=== PATIENT | male | born 1980 | race Caucasian/White ===

== ENCOUNTER → 2021-04-07 12:37 | Outpatient (CLI) | payer BC, SELFPAY ==
--- NOTE | 2021-04-07 12:37 | MR_ITS ---
PROCEDURE: MR HEAD/BRAIN WO/W CON CLINICAL INDICATION: seizures COMPARISON: No exams were available for comparison TECHNIQUE: Routine multiplanar multi echo sequences are performed without gadolinium enhancement. FINDINGS: No midline shift, mass effect, intracranial hemorrhage, hydrocephalus. The cerebellopontine angles, cerebellum, brainstem, and mid brain have an unremarkable appearance. No abnormal white matter signal intensity. The hippocampal gyri are unremarkable no enhancing lesions apparent. The pituitary, optic chiasm, and corpus callosum have an unremarkable appearance. No cerebellar ectopia. No mastoid effusion or sinus air-fluid level. There is mild mucosal thickening of the frontal sinus on the right. IMPRESSION: Negative MRI of the brain without and with contrast Dictated by: Nikita Tate MD 04/07/2021 17:02 Nikita Tate MD in [place] 04/07/2021 17:02
== END ==
PROVIDERS: PCP Family Medicine; Visit Provider Specialist
DX: R56.9 Unspecified convulsions (principal)
CPT/HCPCS: 70553; A9576

== ENCOUNTER → 2022-05-25 14:57 | Outpatient (CLI) | payer BC, SELFPAY ==
[2022-05-31 19:52] LABS: Testosterone, Total, LC/MS 464.8 ng/dL (264.0-916.0); Testosterone,Free 4.6 pg/mL (6.8-21.5)
== END ==
PROVIDERS: PCP Family Medicine; Visit Provider Family Medicine
DX: E34.9 Endocrine disorder, unspecified (principal)
CPT/HCPCS: 84402; 84403

== ENCOUNTER → 2023-01-03 09:30 | Outpatient (CLI) | payer BC, SELFPAY | PROVIDERS: PCP Family Medicine; Visit Provider Family Medicine | DX: R05.9 Cough, unspecified (principal); R06.2 Wheezing | CPT/HCPCS: 94060 ==

== ENCOUNTER 2023-11-07 21:43 | Outpatient (CLI) | payer BC, SELFPAY ==
[2023-11-07 18:27] LABS: Adenovirus,PCR Not Detected (NotDetected); Coronavirus 19, PCR Not Detected (NotDetected); Coronavirus 229E Not Detected (NotDetected); Coronavirus NL63 Not Detected (NotDetected); Coronavirus OC43 Not Detected (NotDetected); Coronovirus HKU1,PCR Not Detected (NotDetected); Human Metapneumovirus Not Detected (NotDetected); Influenza A, PCR Not Detected (NotDetected); Influenza AH1, 2009 Not Detected (NotDetected); Influenza AH1, PCR Not Detected (NotDetected); Influenza AH3,PCR Not Detected (NotDetected); Influenza B, PCR Not Detected (NotDetected); Parainfluenza 1, PCR Not Detected (NotDetected); Parainfluenza 2, PCR Not Detected (NotDetected); Parainfluenza 3, PCR Not Detected (NotDetected); Parainfluenza 4, PCR Not Detected (NotDetected); Respiratory Syncytial Virus Not Detected (NotDetected); Rhinovirus/Enterovirus Not Detected (NotDetected)
== END 2023-11-07 23:59 ==
LOC: LAB.DROPOF 21:43
PROVIDERS: PCP Nurse Practitioner; Visit Provider Nurse Practitioner
DX: J06.9 Acute upper respiratory infection, unspecified (principal); R09.89 Other specified symptoms and signs involving the circulatory and respiratory systems; R05.9 Cough, unspecified; R06.2 Wheezing
CPT/HCPCS: 87581; 87632; 87635; 87798

== ENCOUNTER 2025-04-17 11:32 | Outpatient (CLI) | payer BC, SELFPAY ==
--- OUTSIDE RECORDS SUMMARY | 2016-10-04 11:09 | XMS_ITS | Encounter Summary ---
Author Organization [place] [address] Care Team Providers Care Welder/Fitter Name Role Phone Manuel Garland Primary Care Provider Encounter Details Date Type Department Care Team (Latest Contact Info) Description 10/04/2016 10:09 AM [facility] Hospital Encounter [facility] Referral Lab [address] [place] [address] Raad Lockhart MD Pain of right lower leg Social History Tobacco Use Types Packs/Day Years Used Date Smoking Tobacco: Every Day Cigarettes 0.5 17 Alcohol Use Standard Drinks/Week Comments No 0 (1 standard drink = 0.6 oz pur e alcohol) Sex and Gender Information Value Date Recorded Sex Assigned at Not on file Legal Sex Male 9:05 PM EDT Gender Identity Not on file Sexual Orientation Not on file COVID-19 Exposure Response Date Recorded In the last month, have you been in contact with someone who was confirmed or suspected to have Coronavirus / COVID-19? No / Unsure 01/05/2021 12:49 AM EDT documented as of this encounter Functional Status * Is the person deaf or does he/she have serious difficulty hearing? Answer Date of Assessment Author No 05/25/2015 3:49 PM EDT Luh Lindquist RN * Is the person blind or does he/she have serious difficulty seeing even when wearing glasses? Answer Date of Assessment Author No 05/25/2015 3:49 PM EDT Luh Lindquist RN * Does this person have serious difficulty walking or climbing stairs? Answer Date of Assessment Author No 05/25/2015 3:49 PM Luh Gifford RN * Does this person have difficulty dressing or bathing? Answer Date of Assessment Author No 05/25/2015 3:49 PM Luh Gifford RN * Because of a physical, mental or emotional condition, does this person have difficulty doing errands alone such as visiting a doctor's office or shopping? Answer Date of Assessment Author No 05/25/2015 3:49 PM Luh Gifford RN documented as of this encounter Mental Status * Because of a physical, mental or emotional condition, does this person have serious difficulty concentrating, remembering or making decisions? Answer Entry Date Author No 05/25/2015 3:49 PM Luh Gifford RN documented in this encounter Plan of Treatment Scheduled Orders Name Type Priority Associated Diagnoses Orde r Schedule C-REACTIVE PROTEIN HIGH SENSITIVITY Lab Routine Pain of right lower leg ONCE for 1 Occurrences starting 10/04/2016 until 11/08/2016 CBC WITH AUTO DIFF Lab Routine Pain of right lower leg ONCE for 1 Occurrences starting 10/04/2016 until 11/08/2016 SEDIMENTATION RATE AUTOMATED Lab Routine Pain of right lower leg ONCE for 1 Occurrences starting 10/04/2016 until 11/08/2016 documented as of this encounter Visit Diagnoses Diagnosis Pain of right lower leg Pain in limb documented in this encounter Care Teams Welder/Fitter Relationship Specialty Start Date End Date Manuel Garland PCP - General Family Medicine 08/06/15 documented as of this encounter
[2025-04-17 19:27] LABS: Coronavirus 19, PCR Not Detected (NotDetected); Influenza A, PCR Not Detected (NotDetected); Influenza B, PCR Not Detected (NotDetected)
--- OUTSIDE RECORDS SUMMARY | 2025-04-22 11:38 | XMS_ITS | Clinical Summary ---
Author Organization [facility] Address [address] [place] [phone] Phone Care Team Providers Care Area Loss Prevention Manager Name Role Phone Dima Washington MD Primary Care Provider [phone] Medications venlafaxine ER (EFFEXOR XR) 150 MG CP24 Take 150 mg by mouth daily. Active propranolol (INDERAL) 40 MG TABS Take 40 mg by mouth. 09/05/2020 Active diazePAM (VALIUM) 10 MG TABS Take 1/2 pill 3 times a day as needed for anxiety x14 days thenTake a half a pill 2 times a day as needed for anxiety x14 days then 04/01/2020 Active LINZESS 290 MCG CAPS Take 290 mcg by mouth daily. 05/07/2020 Active predniSONE (DELTASONE) 20 MG TABS Take 40 mg by mouth daily. 10/21/2020 Active LYRICA 200 MG CAPS SMARTSI Milligram(s) By Mouth Twice Daily 09/05/2020 Active promethazine (PHENERGAN) 25 MG TABS Take 25 mg by mouth every 6 (six) hours as needed. 09/05/2020 Active QUEtiapine (SEROQUEL) 50 mg tablet 10/10/2020 Active VENTOLIN HFA 108 (90 Base) mcg/puff AERS Use 2 puffs 4 (four) times daily. 1 inhaler 6 11/03/2020 Active Active Problems Problem Noted Date Diagnosed Date VALERO (dyspnea on exertion) 10/23/2020 Lung nodule 10/23/2020 Cough 10/23/2020 Tobacco abuse 10/23/2020 Social History Tobacco Use Types Packs/Day Years Used Date Smoking Tobacco: Every Day Food Insecurities Answer Date Recorded Worried about running out of food Not on file 10/17/2023 Food Bought Not on file 10/17/2023 Housing/Utilities Answer Date Recorded Worried about losing home Not on file 2023 Stayed outside house Not on file 10/17/2023 Unable to get utilities Not on file 10/17/19 Interpersonal Safety Answer Date Record ed Feel physically or emotionally unsafe where curr ently live Not on file 10/17/2023 Harm by anyone Not on file 10/17/2023 Emotionally Harmed Not on file 10/17/2023 Transportation Answer Date Recorded Worried about transportation Not on file Sex and Gender Information Value Date Recorded Sex Assigned at Not on file Legal Sex Male 10:02 PM EDT Gender Identity Not on file Sexual Orientation Not on file Last Filed Vital Signs Vital Sign Reading Time Taken Comments Blood Pressure 124/75 11/03/2020 11:23 AM EST Pulse 87 11/03/2020 11:23 AM EST Temperature 36 C (96.8 F) 11/03/2020 11:23 AM EST Respiratory Rate - - Oxygen Saturation 98% 11/03/2020 11:23 AM EST ra at rest Inhaled Oxygen Concentration - - Weight 75.3 kg (166 lb) 11/03/2020 11:23 AM EST Height 180.3 cm (5' 11 ) 11/03/2020 11:23 AM EST Body Mass Index 23.15 11/03/2020 11:23 AM EST Plan of Treatment Health Maintenance Due Date Last Done Comments DTap,Tdap,and Td (1 - Tdap) 1991 HPV (1 - 3-dose SCDM series) 2007 Influenza Vaccine (#1) 2025 RSV Vaccine (60+ or ) (1 - 1-dose 75+ series) 2055 Meningococcal conjugate nguyen nt 4 (MCV4) Aged Out No longer eligible b ased on patient's age to complete this topic Pneumococcal 0-49 Aged Out No longer eligible based on patient's age to complete this topic RSV Immunization (<20 months) Aged Out No longer eligible based on patient's age to complete this topic Insurance TOD VIER[employer] ALL OTHERS NOT MEDICARE Care Teams Area Loss Prevention Manager Relationship Specialty Start Date End Date Dima Washington MD PCP - General Family Medicine 10/22/20
--- OUTSIDE RECORDS SUMMARY | 2025-04-22 11:38 | XMS_ITS | Referral Summary ---
Author Organization [facility] Address [address] [place] [phone] Phone Care Team Providers Care Equine Manager Name Role Phone Dima Washington MD Primary Care Provider [phone] Medications venlafaxine ER (EFFEXOR XR) 150 MG [...] 11/03/2020 11:23 AM EST Plan of Treatment Not on file Insurance ALL OTHERS NOT MEDICARE Care Teams Equine Manager Relationship Specialty Start Date End Date Dima Washington MD PCP - General Family Medicine 10/22/20
--- OUTSIDE RECORDS SUMMARY | 2025-04-22 11:38 | XMS_ITS | Clinical Summary ---
Author Organization [facility] Address [address] [place] [address] Care Team Providers Care Principal Java Developer Name Role Phone Manuel Garland MD Primary Care Provider [phone] Source Comments This information has been disclosed to you from confidential records protectedfrom disclosure by state law. You shall make no further disclosure of thisinformation without the specific, written, and informed release of theindividual to whom it pertains, or as otherwise permitted by law. A generalauthorization for the release of medical or other information is not sufficientfor the purposes of therelease of HIV test results or diagnoses. [id number] Allergies No known active allergies Medications QUEtiapine (SEROQUEL) 25 MG tablet 09/16/2016 Active pantoprazole (PROTONIX) 40 MG tablet 09/16/2016 Active nadolol (CORGARD) 40 MG tablet 09/16/2016 Active metFORMIN (GLUCOPHAGE) 500 MG tablet 09/16/2016 Activ e LINZESS 290 mcg Cap 10/04/2016 Active hydrOXYzine pamoate (VISTARIL) 25 MG capsule 09/17/2016 Active cloNIDine HCl (CATAPRES) 0.1 MG tablet 08/14/2016 Active PROAIR HFA 90 mcg/actuation inhaler 07/29/2016 Active senna-docusate (SENNA-S) 8.6-50 mg per tabletIndicatio ns:While on narcotics Take 1 tablet by mouth 2 times a day while on narcotics. 30 tablet 1 11/20/2016 3:39 PM EST 11/20/2016 Active oxyCODONE-aceta minophen (PERCOCET) 5-325 mg per tablet Take 1-2 tablets by mouth every 6 hours as needed. 40 tablet 0 01/25/2017 Active diazePAM (VALIUM) 5 MG tablet Take 1 tablet (5 mg total) by mouth daily as needed (spasm). 10 tablet 0 01/25/2017 Active AMOXicillin (AMOXIL) 500 MG capsule TK 1 C PO Q 8 H FOR 10 DAYS 0 03/21/2017 Active HYDROcodone-oleg taminophen (NORCO) 5-325 mg per tablet TK 1 TO 2 TS PO Q 6 H PRN P 0 03/21/2017 Active nadolol (CORGARD) 20 MG tablet 04/06/2017 Active ranitidine (ZANTAC) 300 MG tablet 05/06/2017 Active sildenafil (REVATIO) 20 mg tablet take TWO TO FIVE tablets BY MOUTH NEEDED 5 03/25/2017 Active Active Problems Problem Noted Date Diagnosed Date Elbow sprain, right, initial encounter 9 De Quervain's disease (radial styloid tenosynovi tis) 01/30/2018 Left wrist pain 11/04/2016 Left leg pain 10/28/2016 Osteomyelitis of right tibia 10/28/2016 Social History Tobacco Use Types Packs/Day Years Used Date Smoking Tobacco: Every Day Cigarettes 1 15 Smokeless Tobacco: Never Alcohol Use Standard Drinks/Week Comments Not Asked 0 (1 standard drink = 0.6 oz pur e alcohol) Sex and Gender Information Value Date Recorded Sex Assigned at Not on file Legal Sex Male 9:17 PM EST Gender Identity Not on file Sexual Orientation Not on file Last Filed Vital Signs Vital Sign Reading Time Taken Comments Blood Pressure 120/70 01/25/2017 9:30 AM EDT Pulse 80 01/25/2017 9:30 AM EDT Temperature 36.7 C (98.1 F) 01/25/2017 9:30 AM EDT Respiratory Rate 16 01/25/2017 9:30 AM EDT Oxygen Saturation 100% 01/25/2017 9:30 AM EDT Inhaled Oxygen Concentration 100% 01/25/2017 9 :30 AM EDT Weight 82.7 kg (182 lb 6.4 oz) 04/12/2019 9:01 A M EDT Height 177.8 cm (5' 10 ) 04/12/2019 9:01 AM EDT Body Mass Index 26.17 04/12/2019 9:01 AM EDT Plan of Treatment Not on file Medical Devices Implanted Type Area Aircraft Mechanic Armament Device Identifier Shelf Expiration Date Model / Serial / Lot Eirck Bone Full Dose 40gm - [id number] Implanted:Qty: 1 on 11/19/2016 by Raad Najera MD at [facility] Main Bone Right: Tibia [employer] 02/23/2019 [id number] [id number] / / [id number] Hng Hi Prof Fem Ss - [id number] Implanted:Qty: 1 on 11/19/2016 by Raad Najera MD at [facility] Main Orthopedic Right: Tibia [employer] BALLESTEROS [id number] / / Yousif Ext Fix Thrd 350mm Ss - [id number] Implanted:Qty: 1 on 11/19/2016 by Raad Najera MD at [facility] Main Orthopedic Right: Tibia [employer] LESLI [id number] / / Insurance BLUE ACCESS Advance Directives For more information, please contact: [phone] * Full Code (Latest Code Status on File) Date Activated Date Inactivated Comments 01/25/2017 8:27 AM 01/25/2017 12:46 PM * Full Code Date Activated Date Inactivated Comments 11/19/2016 1:39 PM 11/20/2016 9:08 PM Care Teams Principal Java Developer Relationship Specialty Start Date End Date Manuel Garland MD [address] [address] PCP - General Unknown Physician Specialty 01/11/17
--- OUTSIDE RECORDS SUMMARY | 2025-04-22 11:38 | XMS_ITS | Encounter Summary ---
Author Organization [facility] Address [address], [address] [place] [address] Care Team Providers Care Flat Grinder Operator Name Role Phone Manuel Levine MD Primary Care Provide r Encounter Details Date Type Department Care Team (Late st Contact Info) Description 04/01/2015 PAT Telephone [facility] PAT [address] [place] [address] Yolande Sethi RN Social History Tobacco Use Types Packs/Day Years Used Date Smoking Tobacco: Never Assessed Sex and Gender Information Value Date Recorded Sex Assigned at Not on file Legal Sex Male 2:58 PM EDT Gender Identity Not on file Sexual Orientation Not on file documented as of this encounter Plan of Treatment Not on file documented as of this encounter Visit Diagnoses Not on filedocumented in this encounter Care Teams Flat Grinder Operator Relationship Specialty Start Date End Date Manuel Levine MD PCP - General 03/31/15 documented as of this encounter
--- OUTSIDE RECORDS SUMMARY | 2025-04-22 11:38 | XMS_ITS | Clinical Summary ---
Author Organization [facility] Address [address] [id number] Care Team Providers Care Air Quality Manager Name Role Phone Unavailable Primary Care Provider Unavailabl e Medications No known medications Active Problems No known active problems Social History Tobacco Use Types Packs/Day Years Used Date Smoking Tobacco: Never Assessed Sex and Gender Information Value Date Recorded Sex Assigned at Not on file Legal Sex Male 8:06 PM EDT Gender Identity Not on file Sexual Orientation Not on file Last Filed Vital Signs Vital Sign Reading Time Taken Comments Blood Pressure 98/66 08/26/2023 11:30 PM EST Pulse 63 08/26/2023 11:55 PM EST Temperature 36.6 C (97.9 F) 08/26/2023 9:13 PM EST Respiratory Rate 15 08/26/2023 11:55 PM EST Oxygen Saturation 98% 08/26/2023 9:13 PM EST Inhaled Oxygen Concentration - - Weight 85.3 kg (188 lb) 08/26/2023 9:13 PM EST Height 180.3 cm (5' 11 ) 08/26/2023 9:13 PM EST Body Mass Index 26.22 08/26/2023 9:13 PM EST Plan of Treatment Health Maintenance Due Date Last Done Comments [facility]-Depression Screening 1980 [facility]-Infant/Child/Adol SDOH Screenings 1980 [facility]-Obesity Intervention 1986 [facility]-Varicella Vaccines (1 of 2 - 13+ 2-dose series) 1993 HPV Vaccines (1 - Male 3-dos e series) 1995 [facility]-DTaP,Tdap,and Td Vaccine s (2 - Tdap) 05/08/1996 05/07/1996 [facility]- SDOH Screenings 1998 [facility]-Adult SDOH Screenings 1998 [facility]-Hepatitis B Vaccines (1 of 3 - 19+ 3-dose series) 1999 [id number] Vaccine ( season) 2024 06/29/2022, 01/28/2021, 12/31/2020 [facility]-Influenza Vaccine (#1) 2025 08/18/2020 [facility]-Zoster Vaccines (1 of 2) 2030 [facility]-HIV Screening Completed 08/26/2023 [facility]-Hepatitis C Screening Completed 08/26/2023 [facility]-HIB Vaccines Aged Out No longer e ligible based on patient's age to complete this topic [facility]-Hepatitis A Vaccines Aged Out No longer eligible based on patient's age to complete this topic [facility]-IPV Vaccines Aged Out No longer e ligible based on patient's age to complete this topic [facility]-Pneumococcal Vaccine: Pediatrics (0 to 5 Years) and At-Risk Patients (6 to 49 Years) Aged Out No longer eligible b ased on patient's age to complete this topic [facility]-Rotavirus Vaccines Aged Out No lo nger eligible based on patient's age to complete this topic Procedures Procedure Name Priority Date/Time Associated Diagnosis Comments HEPATITIS C ANTIBODY - ED W/REFLEX TO HCV QUANT PCR STAT 08/26/2023 9:47 PM EST ED HIV 1/2 ANTIBODY/ANTIGEN SCREEN WITH REFLEX TO HIV I/II DIFFERENTIATION STAT 08/26/2023 9:47 PM EST from Last 3 Months or Most Recently Relevant to Health Maintenance Results * ED HIV 1/2 Antibody/Antigen Screen w/Reflex to HIV 1/2 Differentiation (08/26/2023 9:47 PM EST) HIV 1 & 2 Antibody/Antigen Screen Non Reactive Non Reactive 08/26/2023 10:51 PM EST [facility] Comment:Screening for HIV 1 & 2 antibodies, and P24 antigen is NONREACTIVE. No confirmatory testing is required. Blood Venous blood specimen / Unknown Venipuncture / Unknown 08/26/2023 9:47 PM EST 08/26/2023 10:03 PM EST us [facility] BLOOD ORDERABLES Final Resul t [facility] [address] [place] [address] * Hepatitis C Antibody - ED (08/26/2023 9:47 PM EST) Hepatitis C Antibody Negative Negative 08/26/2023 10:47 PM EST [facility] Blood Venous blood specimen / Unknown Venipuncture / Unknown 08/26/2023 9:47 PM EST 08/26/2023 10:03 PM EST us [facility] BLOOD ORDERABLES Final Resul t Performing Organization Address City/[facility] Co de Phone Number HEALTHCARE [facility] [address] [place] [address] from Last 3 Months or Most Recently Relevant to Health Maintenance Insurance
--- OUTSIDE RECORDS SUMMARY | 2025-04-22 11:38 | XMS_ITS | Clinical Summary ---
Author Organization [facility] Address [address] [place] [address], [address] [place] [address] Care Team Providers Care Independent Living Instructor Name Role Phone Manuel Levine MD Primary Care Provide r Social History Tobacco Use Types Packs/Day Years Used Date Smoking Tobacco: Never Assessed Sex and Gender Information Value Date Recorded Sex Assigned at Not on file Legal Sex Male 2:58 PM EDT Gender Identity Not on file Sexual Orientation Not on file Plan of Treatment Not on file Care Teams Independent Living Instructor Relationship Specialty Start Date End Date Manuel Levine MD PCP - General 03/31/15
--- OUTSIDE RECORDS SUMMARY | 2025-04-22 11:38 | XMS_ITS | Encounter Summary ---
Author Organization [facility] Address [address] [place] [address] Care Team Providers Care Artificial Flowers Dyer Name Role Phone Manuel Levine MD Primary Care Provider [phone] Encounter Details Date Type Department Care Team (Late st Contact Info) Description 04/14/2015 Abstract [facility] Physicians - Primary Care, [address], [place] [phone] Manuel Levine MD [address] [place], [place] [id number] Social History Tobacco Use Types Packs/Day Years Used Date Smoking Tobacco: Every Day Cigarettes Smokeless Tobacco: Never Alcohol Use Standard Drinks/Week Comments No 0 (1 standard drink = 0.6 oz pur e alcohol) Sex and Gender Information Value Date Recorded Sex Assigned at Not on file Legal Sex Male 6:45 PM EST Gender Identity Not on file Sexual Orientation Not on file documented as of this encounter Plan of Treatment Not on file documented as of this encounter Visit Diagnoses Not on filedocumented in this encounter Care Teams Artificial Flowers Dyer Relationship Specialty Start Date End Date Manuel Levine MD [address] [place], [place] [id number] PCP - General Internal Medicine 04/14/15 documented as of this encounter
--- OUTSIDE RECORDS SUMMARY | 2025-04-22 11:38 | XMS_ITS | Clinical Summary ---
Author Organization [facility] Address [address] [place] [address] Care Team Providers Care Oven Loader Name Role Phone Manuel Levine MD Primary Care Provider Allergies No known active allergies Medications QUEtiapine (SEROQUEL) 200 mg Tablet Take 200 mg by mouth daily. Active BUPRENORPHINE HCL/NALOXONE HCL (SUBOXONE SL) Active linaclotide (LINZESS) 290 mcg Capsule Take 290 mcg by mouth daily. Active predniSONE (DELTASONE) 20 mg tablet 3 tabs QD for 3 day, 2 tabs QD for 3 days, 1 tab QD for 3 days, 1/2 tab QD for 4 days. 20 Tab 0 04/16/2015 Active promethazine-cod eine (PHENERGAN WITH CODEINE) 6.25-10 mg/5 mL syrup Take 1 tsp QID PO PRN cough. 120 mL 0 04/16/2015 Active ALPRAZolam (XANAX) 2 mg tablet take 1 tab by mouth 4 times daily 120 Tab 0 05/06/2015 Active Active Problems Problem Noted Date Diagnosed Date Anxiety 04/14/2015 Depression 04/14/2015 Low testosterone 04/14/2015 Low back pain 04/14/2015 Narcotic abuse 04/14/2015 Family History Medical History Relation Name Comments Diabetes Father High Blood Pressure Maternal Grandfather Relation Name Status Comments Father Alive Maternal Grandfather Maternal Grandmother Mother Alive Paternal Grandfather Paternal Grandmother Social History Tobacco Use Types Packs/Day Years [...] Sign Reading Time Taken Comments Blood Pressure 110/60 04/16/2015 9:03 AM EDT Pulse 80 04/16/2015 9:03 AM EDT Temperature 36.7 C (98 F) 04/16/2015 9:03 AM EDT Respiratory Rate 16 04/16/2015 9:03 AM EDT Oxygen Saturation 96% 04/16/2015 9:03 AM EDT Inhaled Oxygen Concentration - - Weight 97.1 kg (214 lb) 04/16/2015 9:03 AM EDT Height 180.3 cm (5' 11 ) 04/16/2015 9:03 AM EDT Body Mass Index 29.85 04/16/2015 9:03 AM EDT Plan of Treatment Health Maintenance Due Date Last Done Comments Lipid Screening 1998 Tetanus Vaccination (Every 1 0 Years) 1998 COVID-19 Vaccine (2023-2 5 season) 2024 Depression Screening 09/26/2024 Influenza Vaccination (#1) 2025 HPV Vaccine Aged Out No longer eligi ble based on patient's age to complete this topic Insurance ANTHEM ANTHEM Care Teams Oven Loader Relationship Specialty Start Date End Date Manuel Levine MD [address] [place] [address] PCP - General Internal Medicine 04/14/15
--- OUTSIDE RECORDS SUMMARY | 2025-04-22 11:38 | XMS_ITS | Clinical Summary ---
Author Organization [facility] Address [address] [place] [address] Phone Care Team Providers Care Fish Bailer Name Role Phone Manuel Garland Primary Care Provider Allergies No known active allergies Medications * This document contains information received from the source organization and may not represent a complete record from that organization. propranolol (INDERAL) 40 mg Oral Tablet 1 tab po up to twice daily prn panic or physical anxiety symptoms 60 Tab 1 11/24/2018 Active pregabalin (LYRICA) 300 mg Oral Capsule Take 1 Cap by mouth 2 times daily. 60 Cap 1 11/24/2018 Active QUEtiapine (SEROQUEL) 25 mg Oral Tablet Take 3-5 tabs po qhs 150 Tab 1 02/29/2020 Active diazePAM (VALIUM) 10 mg Oral Tablet Take 1/2 pill 3 times a day as needed for anxiety x14 days thenTake a half a pill 2 times a day as needed for anxiety x14 days then 31 Tab 04/01/2020 Active Active Problems Problem Noted Date Diagnosed Date ARACELI (generalized anxiety disorder) 02/17/2023 Severe gambling disorder 02/17/2023 Opioid use disorder 02/17/2023 Severe episode of recurrent major depressive disorder, without psychotic features 02/17/2023 Attention deficit hyperactiv ity disorder (ADHD), predominantly hyperactive type 02/17/2023 Personality disorder, unspecified 02/17/2023 Panic disorder without agora phobia with moderate panic attacks 11/24/2018 Masseter muscle spasm 05/22/2015 Drug reaction 05/22/2015 Opioid use disorder, severe, in controlled environment, dependence 05/12/2015 Benzodiazepine dependence, continuous 05/12/2015 Chronic leg pain 05/12/2015 Overview (05/12/2015): Right leg injured 5 years ago skating accident Asthma in remission 05/12/2015 Resolved Problems Problem Noted Date Diagnosed Date Resolved Date Depression 05/12/2015 11/24/2018 Immunizations Immunization Administration Dates Next Due PPD Test 02/22/2017 Surgical History Surgery Date Site/Laterality Comments TONSILLECTOMY NASAL SEPTUM SURGERY FRACTURE SURGERY right tib/fib left wrist SALIVARY GLAND SURGERY removal SALIVARY GLAND SURGERY 04/28/2016 Mouth/Right RIGHT SUBMANDIBULAR GLAND REMOVAL; Surgeon: Shiva Strauss DMD; Location: [facility]IN OR; Service: Dental Medical History Medical History Date Comments Bronchitis COPD (chronic obstructive pulmonary disease) (HC C) Cardiac dysrhythmia tachy Seizures (HCC) from coming off xanax Family History Medical History Relation Name Comments Diabetes Father Heart Disease Father Relation Name Status Comments Father Alive Mother Alive Social History Tobacco Use Types Packs/Day Years Used Date Smoking Tobacco: Every Day Cigarettes 0.5 17 Tobacco Cessation:Ready to Q uit: Yes; Counseling Given: Yes Alcohol Use Standard Drinks/Week Comments No 0 (1 standard drink = 0.6 oz pur e alcohol) Sex and Gender Information Value Date Recorded Sex Assigned at Not on file Legal Sex Male 9:05 PM EDT Gender Identity Not on file Sexual Orientation Not on file Obstetrics History Last Filed Vital Signs Vital Sign Reading Time Taken Comments Blood Pressure 122/75 11/24/2018 9:30 AM EST Pulse 92 11/24/2018 9:30 AM EST Temperature 36.3 C (97.4 F) 04/28/2016 4:30 PM EDT Respiratory Rate 14 04/28/2016 4:30 PM EDT Oxygen Saturation 98% 02/22/2017 9:3 5 AM EDT room air at rest Inhaled Oxygen Concentration - - Weight 87.9 kg (193 lb 12.8 oz) 11/24/2018 9:30 AM EST Height 177.8 cm (5' 10 ) 02/22/2017 9:3 5 AM EDT Body Mass Index 27.81 02/22/2017 9:35 AM EDT Plan of Treatment Health Maintenance Due Date Last Done Comments Annual Wellness Exam 1983 DTaP/TDaP/Td (1 - Tdap) 1999 Hepatitis B Vaccine (1 of 3 - 19+ 3-dose series) 1999 Pneumococcal Vaccine 0-49 (1 of 2 - PCV) 1999 COVID-19 Vaccine (1 - 2023-2 5 season) 2024 Influenza Vaccine (#1) 2025 Meningococcal B Vaccine Aged Out No l onger eligible based on patient's age to complete this topic [facility] [place] [facility] [place] AN[place] PPO * Guarantor: Neftali Curran Account Type Relation to Patient Date of Phone Billing Address [place] Personal Family Self Advance Directives For more information, please contact: [phone] * Full Code (Latest Code Status on File) Date Activated Date Inactivated Comments 05/23/2015 12:05 PM 05/25/2015 8:08 PM * Full Code Date Activated Date Inactivated Comments 05/11/2015 4:19 PM 05/14/2015 3:09 PM Care Teams Fish Bailer Relationship Specialty Start Date End Date Manuel Garland PCP - General Family Medicine 08/06/15
--- OUTSIDE RECORDS SUMMARY | 2025-04-22 11:38 | XMS_ITS | Encounter Summary ---
Author Organization [facility] Address [address] [place] [address] [place] [address] Phone Care Team Providers Care Ordnance Officer Name Role Phone Dima Washington MD Primary Care Provider [phone] Encounter Details Date Type Department Care Team (Late st Contact Info) Description 10/22/2020 [facility] Pulmonary [place] [address] [address] [place] [address] Social History Tobacco Use Types Packs/Day Years [...] or suspected to have Coronavirus / COVID-19? Unable to assess 10/23/2020 9:17 AM EST documented as of this encounter Plan of Treatment Not on file documented as of this encounter Procedures Procedure Name Priority Date/Time Associated Diagnosis Comments CHEST X-RAY 2VW Routine 10/21/2020 documented in this encounter Results * CHEST X-RAY 2VW (10/21/2020) Anatomical Region Laterality Modality Other us Historical Med GENERAL IMAGING Final Result documented in this encounter Visit Diagnoses Not on filedocumented in this encounter Care Teams Ordnance Officer Relationship Specialty Start Date End Date Dima Washington MD PCP - General Family Medicine 10/22/20 documented as of this encounter
--- OUTSIDE RECORDS SUMMARY | 2025-04-22 11:38 | XMS_ITS | Encounter Summary ---
Author Organization [facility] Address [address] [place] [address] Care Team Providers Care Meat Boner Name Role Phone Manuel Garland MD Primary Care Provider [phone] Source Comments This information has been disclosed to you from confidential records protectfrom disclosure by state law. You shall make no further disclosure of thisinformation without the specific, written, and informed release of theindividual to whom it pertains, or as otherwise permitted by law. A generalauthorization for the release of medical or other information is not sufficientfor the purposes of the release of HIV test results or diagnoses. [id number] Health Encounter Details Date Type Department Care Team (Late st Contact Info) Description 12/27/2016 Orders Only [facility] [address] [place] [address] [address] [place] [address] Raad Najera MD [address] [place] [address] Social History Tobacco Use Types Packs/Day Years Used Date Smoking Tobacco: Every Day Cigarettes 1 15 Alcohol Use Standard Drinks/Week Comments Not Asked [...] on filedocumented in this encounter Care Teams Meat Boner Relationship Specialty Start Date End Date Manuel Garland MD [address] [address] PCP - General Unknown Physician Specialty 01/11/17 documented as of this encounter
== END 2025-04-17 23:59 ==
LOC: LAB.DROPOF 04-22 11:33
PROVIDERS: PCP Family Medicine; Visit Provider Nurse Practitioner
DX: J06.9 Acute upper respiratory infection, unspecified (principal)
CPT/HCPCS: 87636